=== PATIENT | female | born 1955 | race Caucasian/White ===

== ENCOUNTER 2020-03-07 13:17 | Emergency (ER) | payer OTHER ==
[~2020-03-07] VITALS: Ht 167.6 cm; Wt 67.6 kg
[2020-03-07] MEDS ORDERED: COZAAR 25 MG TA25 M1 PO (13:28)
[2020-03-07] MEDS ORDERED: MAXITROL EYE DRO5 ML OPHTHALMIC (13:52)
[2020-03-07] MEDS ORDERED: KEFLEX500 M1 PO (13:52)
[2020-03-07 14:18] VITALS: BP 157/79
== END 2020-03-07 14:19 | disposition home or self-care (01) ==
LOC: M.ERS 13:17
DX: T15.82XA Foreign body in other and multiple parts of external eye, left eye, initial encounter (principal); L03.213 Periorbital cellulitis; H10.89 Other conjunctivitis; I10 Essential (primary) hypertension; Z88.5 Allergy status to narcotic agent; Z88.8 Allergy status to other drugs, medicaments and biological substances; Z90.49 Acquired absence of other specified parts of digestive tract; Z90.710 Acquired absence of both cervix and uterus; Z79.899 Other long term (current) drug therapy; Y92.89 Other specified places as the place of occurrence of the external cause

== ENCOUNTER 2021-04-05 17:55 | Emergency (ER) | payer OTHER ==
[~2021-04-05] VITALS: Ht 167.6 cm; Wt 65.3 kg
[~2021-04-05 17:55] MED LIST: COZAAR 25 MG TA25 M1 PO; KEFLEX500 M1 PO; MAXITROL EYE DRO5 ML OPHTHALMIC
[2021-04-05 19:36] LABS: URINE BILIRUBIN NEGATIVE (Negative); URINE BLOOD NEGATIVE (Negative); URINE CLARITY CLEAR; URINE COLOR YELLOW; URINE GLUCOSE-RANDOM NEGATIVE (Negative); URINE KETONES 1+ (Negative); URINE LEUKOCYTES-REFLEX NEGATIVE (Negative); URINE NITRITE-REFLEX NEGATIVE (Negative); URINE PROTEIN NEGATIVE (Negative); URINE SPECIFIC GRAVITY >= 1.030 (1.005-1.030); URINE UROBILINOGEN 0.2 E.U./dl (0.2-1.0)
[2021-04-05 19:58] LABS: ABSOLUTE BASOPHILS 0.1 thou/uL (0.0-0.2); ABSOLUTE LYMPHOCYTES 2.2 thou/uL (0.8-5.3); ABSOLUTE MONOCYTES 0.5 thou/uL (0.0-1.2); ABSOLUTE NEUTROPHILS 5.2 thou/uL (1.6-8.1); BASOPHILS 0.8 %; EOSINOPHILS 0.6 %; HEMATOCRIT 43.1 % (37.0-47.0); HEMOGLOBIN 14.9 gm/dL (12.0-15.0); LYMPHOCYTES 27.5 %; MCH 30.7 pg (26.0-34.0); MCHC 34.7 g/dL (28.0-37.0); MCV 88.4 fL (80.0-100.0); MONOCYTES 6.1 %; MPV 8.6 fl. (7.2-11.1); NUCLEATED RBCS 0 /100WBC; PLATELET COUNT* 289 thou/uL (150-400); RBC 4.87 mil/uL (4.20-5.00); RDW-CV 14.3 % (10.5-14.5)
[2021-04-05 20:10] LABS: CALCIUM 9.2 mg/dL (8.5-10.1); CREATININE 0.7 mg/dL (0.6-1.3)
[2021-04-05 20:15] LABS: ALBUMIN 4.2 g/dL (3.4-5.0); TOTAL BILIRUBIN 0.5 mg/dL (<0.1-1.0)
[2021-04-05] MEDS ORDERED: ZOFRAN ODT4 MG PO (22:28)
[2021-04-05] MEDS ORDERED: DICYCLOMINE HCL20 MG PO (22:28)
[2021-04-05 22:43] VITALS: BP 142/62
--- NOTE | 2021-04-06 16:25 | EKG ---
[place] [address] ELECTROCARDIOGRAM REPORT Name: KANG ESPINOZA Room: [facility]#: [id number] Admission: 04/05/21 Attend Phys: Discharge: 04/05/21 Date of : 57 Date of Service: 04/05/211944 Report #: [id number] THIS REPORT FOR: //name// [facility] ED Test Date: 2021-04-05 Test Time: 19:45:38 Pat Name: KANG ESPINOZA Department: Room: Gender: F Training And Development Coordinator: [place] : 1955 Requested By: Yancy Juan Order Number: [id number] MD: Wilbert Swann Measurements Intervals [place] Rate: 76 P: 46 VA: 167 QRS: -28 QRSD: 88 T: 15 QT: 385 QTc: 433 Interpretive Statements Sinus rhythm Left atrial enlargement Borderline left axis deviation RSR' in V1 or V2, probably normal variant Compared to ECG 11/19/2006 04:53:38 Atrial abnormality now present RSR' in V1 or V2 now present Sinus arrhythmia no longer present Electronically Signed On 04-06-2021 16:25:24 CDT by Wilbert Swann [email or web address] <ELECTRONICALLY SIGNED> By: Wilbert Swann MD, [facility] 04/06/21 1625 [id number] 44 Wilbert Swann MD, [facility] /EPI
== END 2021-04-05 22:44 | disposition home or self-care (01) ==
LOC: M.ERS 17:55
PROVIDERS: Nurse Practitioner Family
DX: K52.9 Noninfective gastroenteritis and colitis, unspecified (principal); I10 Essential (primary) hypertension; Z90.49 Acquired absence of other specified parts of digestive tract; Z90.710 Acquired absence of both cervix and uterus; Z88.8 Allergy status to other drugs, medicaments and biological substances; Z88.5 Allergy status to narcotic agent